=== PATIENT | female | born 2000 | race Caucasian/White ===

== ENCOUNTER 2024-01-09 17:34 | Emergency (ER) | payer SELFPAY ==
[~2024-01-09] VITALS: Ht 167.6 cm; Wt 73.0 kg
[2024-01-09 17:48] VITALS: O2SAT 100
[2024-01-09] MEDS: MORPHINE SULFATE 4 MG/ML INJ (FOR IV/IM USE) IM ONE ×3 (19:45→22:45)
[2024-01-09 21:58] LABS: CLARITY URINE CLOUDY (CLEAR); COLOR URINE YELLOW (YELLOW); GLUCOSE URINE NEGATIVE (NEGATIVE); KETONES URINE 1+ (NEGATIVE); LEUKOCYTE ESTERASE URINE NEGATIVE (NEGATIVE); NITRITE URINE NEGATIVE (NEGATIVE); OCCULT BLOOD URINE NEGATIVE (NEGATIVE); PROTEIN URINE TRACE (NEGATIVE); SPECIFIC GRAVITY URINE 1.027 (1.005-1.030)
[2024-01-09 22:22] LABS: BACTERIA URINE 3+; RBC URINE 0-2 /hpf (0-2); SQUAMOUS EPITHELIAL CELL URINE 2+ /lpf (RARE/1+); WBC URINE 0-2 /hpf (0-2)
[2024-01-09] MEDS ORDERED: IBUP-2029 MT (22:29)
[2024-01-09] MEDS ORDERED: CYCL10TA21 MT (22:29)
[2024-01-09] MEDS ORDERED: T3 PO (22:29)
[2024-01-09 23:00] VITALS: BP 110/75; PULSE 81; RESP 17; TEMP 36.39180; O2SAT 99
== END 2024-01-09 23:31 | disposition home or self-care (01) ==
LOC: ER 17:34
DX: M54.50 Low back pain, unspecified (principal); F19.90 Other psychoactive substance use, unspecified, uncomplicated
CPT/HCPCS: 99284; 81003; 81025; 96372; J2270